=== PATIENT | female | born 1995 | race Caucasian/White ===

== ENCOUNTER → 2016-10-27 | Outpatient (REF) | payer OTHER ==
[~2016-10-27] MED LIST: ACET50TA PO; IBUP-1114 PO; IRON65TA PO; PRENTAB9 PO
[2016-10-27 13:49] LABS: CONTROL LINE UCG INT CTR LINE PRESENT
== END ==
LOC: M LAB REF 13:01
PROVIDERS: ATTEND Physician Assistant Medical
DX: Z32.02 Encounter for pregnancy test, result negative (principal)

== ENCOUNTER → 2016-12-11 | Outpatient (REF) | payer OTHER | LOC: M LAB REF 21:15 | PROVIDERS: ATTEND Physician Assistant Medical | DX: R30.0 Dysuria (principal) ==

== ENCOUNTER 2017-01-29 21:24 | Emergency (ER) | payer OTHER ==
[~2017-01-29] VITALS: Ht 167.6 cm; Wt 78.6 kg
[2017-01-29 21:24] VITALS: BP 162/89
== END 2017-01-29 22:24 | disposition left against medical advice (07) ==
LOC: M ED 22:15
DX: R10.9 Unspecified abdominal pain (principal); Z53.29 Procedure and treatment not carried out because of patient's decision for other reasons

== ENCOUNTER → 2017-01-29 | Outpatient (REF) | payer OTHER | LOC: M LAB REF 12:00 | PROVIDERS: ATTEND Physician Assistant Medical | DX: N39.0 Urinary tract infection, site not specified (principal) ==

== ENCOUNTER → 2017-10-06 | Outpatient (REF) | payer OTHER ==
[2017-10-06 16:04] LABS: APPEARANCE, URINE CLOUDY (CLEAR); BACTERIA, URINE AUTO 1+ (NEGATIVE); BILIRUBIN, URINE AUTO NEGATIVE (NEGATIVE); BLOOD, URINE BLOOD NEGATIVE (NEGATIVE); COLOR, URINE YELLOW (YELLOW); GLUCOSE, URINE (UA) AUTO NEGATIVE (NEGATIVE); KETONE, URINE AUTO NEGATIVE (NEGATIVE); LEUKOCYTE ESTERASE, URINE AUTO NEGATIVE (NEGATIVE); MUCUS, URINE LARGE (NEGATIVE); NITRITE, URINE AUTO NEGATIVE (NEGATIVE); PROTEIN, URINE AUTO NEGATIVE (NEGATIVE); RBC, URINE AUTO 1 /HPF (0-3); SPECIFIC GRAVITY URINE AUTO 1.023 (1.002-1.035); SQUAMOUS EPITHELIAL CELL UR AU 16 /HPF (0-6); UROBILINOGEN, URINE AUTO 0.2 mg/dL (0.0-2.0); WBC, URINE AUTO 2 /HPF (0-3)
== END ==
LOC: M LAB REF 15:49
DX: N39.0 Urinary tract infection, site not specified (principal)
CPT/HCPCS: 81001

== ENCOUNTER → 2018-02-02 | Outpatient (REF) | payer OTHER ==
[2018-02-02 14:24] LABS: APPEARANCE, URINE CLOUDY (CLEAR); BACTERIA, URINE AUTO NEGATIVE (NEGATIVE); BILIRUBIN, URINE AUTO NEGATIVE (NEGATIVE); BLOOD, URINE BLOOD NEGATIVE (NEGATIVE); COLOR, URINE YELLOW (YELLOW); GLUCOSE, URINE (UA) AUTO NEGATIVE (NEGATIVE); KETONE, URINE AUTO NEGATIVE (NEGATIVE); LEUKOCYTE ESTERASE, URINE AUTO TRACE (NEGATIVE); MUCUS, URINE LARGE (NEGATIVE); NITRITE, URINE AUTO NEGATIVE (NEGATIVE); PROTEIN, URINE AUTO NEGATIVE (NEGATIVE); RBC, URINE AUTO 1 /HPF (0-3); SPECIFIC GRAVITY URINE AUTO 1.026 (1.002-1.035); SQUAMOUS EPITHELIAL CELL UR AU 44 /HPF (0-6); WBC, URINE AUTO 15 /HPF (0-3)
== END ==
LOC: M LAB REF 12:43
DX: N39.0 Urinary tract infection, site not specified (principal)

== ENCOUNTER 2018-07-16 09:39 | Emergency (ER) | payer OTHER, SELFPAY ==
[~2018-07-16] VITALS: Ht 170.2 cm; Wt 84.1 kg
[~2018-07-16 09:39] MED LIST changes: -ACET50TA PO; +MAPA500T2 PO
[2018-07-16 09:40] VITALS: BP 139/89
[2018-07-16] MEDS ORDERED: LIDO1SOL7 PO (10:04)
[2018-07-16] MEDS ORDERED: LIDOCAINE VISCOUS 2% SOLN 15ML UDC SS ONE (10:15)
[2018-07-17] MEDS ORDERED: AMOX500C PO (15:44)
== END 2018-07-16 10:15 | disposition home or self-care (01) ==
LOC: M ED 09:39
DX: J02.8 Acute pharyngitis due to other specified organisms (principal); J45.909 Unspecified asthma, uncomplicated

== ENCOUNTER 2018-09-25 22:57 | Emergency (ER) | payer OTHER, SELFPAY ==
[~2018-09-25] VITALS: Ht 170.2 cm; Wt 81.8 kg
[~2018-09-25 22:57] MED LIST changes: +AMOX500C PO; +LIDO1SOL8 PO
[2018-09-26 02:30] LABS: BASO # 0.1 10^3/uL (0.0-0.2); BASO % 0.5 % (0.0-1.0); EOS # 0.1 10^3/uL (0.0-0.50); EOS % 0.8 % (0.0-3.0); HEMATOCRIT 34.3 % (36.0-47.0); HEMOGLOBIN 10.3 g/dl (12.0-15.5); LYMPH # 3.4 10^3/uL (1.5-6.5); LYMPH % 26.3 % (24.0-44.0); MEAN CORPUSCULAR HEMOGLOBIN 23.4 pg (27.0-33.0); MONO # 0.9 10^3/uL (0.0-0.8); MONO % 6.8 % (0.0-5.0); NEUTROPHILS # 8.5 10^3/uL (1.8-7.7); NEUTROPHILS % 65.2 % (36.0-66.0); PLATELET COUNT, AUTOMATED 323 10^3/uL (150-450)
[2018-09-26 02:51] LABS: HCG, SERUM QUALITATIVE NEGATIVE (NEGATIVE)
[2018-09-26 02:53] LABS: BLOOD UREA NITROGEN 12 MG/DL (7-18); CALCIUM LEVEL 8.2 MG/DL (8.5-10.1); CARBON DIOXIDE LEVEL 24 MEQ/L (21-32); CHLORIDE LEVEL 107 MEQ/L (98-107); CREATININE FOR GFR 0.66 MG/DL (0.55-1.30); GLOMERULAR FILTRATION RATE > 60.0 (>60); GLUCOSE, FASTING 90 MG/DL (70-100); POTASSIUM SERUM 3.6 MEQ/L (3.5-5.1); SODIUM LEVEL 140 MEQ/L (136-145)
[2018-09-26 05:46] VITALS: BP 139/77
--- NOTE | 2018-09-26 07:42 | REPVR ---
EXAM: US Pelvis Complete, Transabdominal and US Pelvis, Transvaginal EXAM DATE/TIME: 09/26/2018 5:41 AM CLINICAL HISTORY: 23 years old, female; Signs and symptoms; Menstruation abnormalities; Excessive menstruation; With irregular cycle; Additional info: Eval iud/bleeding TECHNIQUE: Imaging protocol: Real-time transabdominal and transvaginal pelvic ultrasound (complete) with image documentation. Transvaginal imaging was used for better evaluation of the endometrium and adnexa. COMPARISON: US BPP W/O NON STRESS TEST 03/31/2016 12:53 PM FINDINGS: Uterus/cervix: The uterus measures 9.4 x 4.4 x 6.5 cm. There is an IUD within the endometrial cavity. The endometrium appears thickened measuring 2 cm. There is a small amount of fluid or blood within the fundal portion of the endometrial cavity. Right adnexa: The right ovary measures 4.3 x 2.8 x 2.9 cm and is unremarkable in appearance containing small follicles. There is Doppler flow present within the right ovary. No adnexal masses. Left adnexa: The left ovary measures 3.6 x 2.9 x 2.2 cm and is unremarkable in appearance containing small follicles. There is Doppler flow present within the left ovary. No adnexal masses. Free fluid: No evidence of free fluid. Bladder: The urinary bladder is decompressed. IMPRESSION: 1. There is an IUD within the endometrial cavity. There is endometrial thickening which may represent endometrial hyperplasia and/or polyps. Other endometrial pathology cannot be excluded. Small amount of fluid or blood within the fundal portion of the endometrial cavity. 2. No adnexal masses or free fluid. 3. Unremarkable appearance of the ovaries. Electronically signed by: Benny Hamm On 09/26/2018 07:41:56 AM
--- NOTE | 2018-09-26 14:32 | ED PDOC ---
Post-Departure Follow-Up dr kahn faxed formal report of pelvic us for fu Nan Bull MD Sep 26, 2018 14:32
== END 2018-09-26 06:18 | disposition home or self-care (01) ==
LOC: M ED 22:57
DX: N92.0 Excessive and frequent menstruation with regular cycle (principal); D64.9 Anemia, unspecified; Z97.5 Presence of (intrauterine) contraceptive device; J45.909 Unspecified asthma, uncomplicated

== ENCOUNTER → 2018-10-22 | Outpatient (REF) | payer OTHER | LOC: M SFHCWAGY 11:31 | PROVIDERS: ATTEND Nurse Practitioner Women's Health | DX: Z12.4 Encounter for screening for malignant neoplasm of cervix (principal) ==

== ENCOUNTER 2018-11-11 11:35 | Emergency (ER) | payer OTHER ==
[~2018-11-11] VITALS: Ht 167.6 cm; Wt 84.5 kg
[2018-11-11 11:35] VITALS: BP 143/88
[2018-11-11] MEDS ORDERED: NAPR-837 PO (12:29)
[2018-11-11] MEDS ORDERED: REGL10TA6 PO (12:29)
== END 2018-11-11 12:38 | disposition home or self-care (01) ==
LOC: M ED 11:35
DX: R10.2 Pelvic and perineal pain (principal); J45.909 Unspecified asthma, uncomplicated

== ENCOUNTER 2019-01-30 11:48 | Emergency (ER) | payer OTHER ==
[~2019-01-30] VITALS: Ht 167.6 cm; Wt 85.5 kg
[~2019-01-30 11:48] MED LIST changes: +NAPR-837 PO; +REGL10TA6 PO
[2019-01-30 11:49] VITALS: BP 141/90
[2019-01-30 12:35] LABS: HEMATOCRIT 31.7 % (36.0-47.0); HEMOGLOBIN 8.9 g/dl (12.0-15.5); MEAN CORPUSCULAR HEMOGLOBIN 19.8 pg (27.0-33.0); MEAN CORPUSCULAR HGB CONC 28.1 g/dl (32.0-36.5); MEAN CORPUSCULAR VOLUME 70.6 fl (80.0-96.0); PLATELET COUNT, AUTOMATED 377 10^3/uL (150-450); RED BLOOD COUNT 4.49 10^6/uL (4.00-5.40); WHITE BLOOD COUNT 6.8 10^3/uL (4.0-10.0)
[2019-01-30] MEDS ORDERED: AUGM875T28 PO (12:56)
== END 2019-01-30 13:05 | disposition home or self-care (01) ==
LOC: M ED 11:48
DX: O23.41 Unspecified infection of urinary tract in pregnancy, first trimester (principal); O99.511 Diseases of the respiratory system complicating pregnancy, first trimester; Z3A.00 Weeks of gestation of pregnancy not specified

== ENCOUNTER → 2019-02-01 | Outpatient (CLI) | payer OTHER ==
[~2019-02-01] MED LIST changes: +AUGM875T28 PO
== END ==
LOC: M LAB 08:39
PROVIDERS: ATTEND Physician Assistant
DX: Z34.80 Encounter for supervision of other normal pregnancy, unspecified trimester (principal); Z3A.00 Weeks of gestation of pregnancy not specified

== ENCOUNTER 2019-02-15 17:53 | Emergency (ER) | payer OTHER ==
[~2019-02-15] VITALS: Ht 167.6 cm; Wt 85.2 kg
[2019-02-15 20:04] LABS: BASO # 0.1 10^3/uL (0.0-0.2); BASO % 0.8 % (0.0-1.0); EOS # 0.1 10^3/uL (0.0-0.5); EOS % 0.6 % (0.0-3.0); HEMATOCRIT 31.9 % (36.0-47.0); HEMOGLOBIN 9.2 g/dl (12.0-15.5); LYMPH # 1.6 10^3/uL (1.5-5.0); LYMPH % 17.3 % (24.0-44.0); MEAN CORPUSCULAR HEMOGLOBIN 20.9 pg (27.0-33.0); MEAN CORPUSCULAR HGB CONC 28.8 g/dl (32.0-36.5); MEAN CORPUSCULAR VOLUME 72.3 fl (80.0-96.0); MONO # 0.7 10^3/uL (0.0-0.8); MONO % 7.8 % (0.0-5.0); NEUTROPHILS # 6.8 10^3/uL (1.5-8.5); NEUTROPHILS % 73.2 % (36.0-66.0); PLATELET COUNT, AUTOMATED 279 10^3/uL (150-450); RED BLOOD COUNT 4.41 10^6/uL (4.00-5.40); WHITE BLOOD COUNT 9.3 10^3/uL (4.0-10.0)
[2019-02-15 20:18] LABS: BLOOD UREA NITROGEN 10 MG/DL (7-18); CALCIUM LEVEL 9.2 MG/DL (8.5-10.1); CARBON DIOXIDE LEVEL 25 MEQ/L (21-32); CHLORIDE LEVEL 106 MEQ/L (98-107); CREATININE FOR GFR 0.63 MG/DL (0.55-1.30); GLOMERULAR FILTRATION RATE > 60.0 (>60); GLUCOSE, FASTING 85 MG/DL (70-100); HCG, SERUM QUANTITATIVE 26927 MIU/ML; POTASSIUM SERUM 3.8 MEQ/L (3.5-5.1); SODIUM LEVEL 138 MEQ/L (136-145)
--- NOTE | 2019-02-15 22:54 | REPVR ---
EXAM: US First Trimester, Transabdominal EXAM DATE/TIME: 02/15/2019 10:18 PM CLINICAL HISTORY: 23 years old, female; Lmp or gestational age (in weeks): 6w 5d; Antepartum complications; Bleeding; ; Additional info: Donovan TECHNIQUE: Imaging protocol: Real-time transabdominal obstetrical ultrasound of the maternal pelvis and a first trimester , less than 14 weeks 0 days, with image documentation. COMPARISON: US OBS FOLL UP OR REPEAT EACH GES 03/16/2016 3:35 PM FINDINGS: GESTATION: Gestation: Single gestational sac in the uterine fundus. Single pole within the gestational sac demonstrates a crown-rump length of 7.3 mm. Yolk sac measures 4.4 mm. Heart rate: heart rate 132 beats per minute. Placenta: Unremarkable. No subchorionic bleed. Amniotic fluid: Amniotic and chorionic fluid are normal for gestational age. BIOMETRY: Estimated gestational age: Gestational age based on crown-rump length is 6 weeks 4 days in this patient with unknown LMP. MATERNAL: Uterus: Unremarkable. Cervix: Unremarkable. Right adnexa: Unremarkable. Left adnexa: Complex medical filled cyst in the left ovary measures 2 x 1.3 x 2.2 cm may represent a corpus luteum. Intraperitoneal: No intraperitoneal free fluid. IMPRESSION: Unremarkable early gestation at 6 weeks 4 days. Detailed structural survey can be performed between 19-20 weeks if clinically desired. Electronically signed by: Mariano Daley On 02/15/2019 22:53:42 PM
[2019-02-15] MEDS ORDERED: RHOGAM 300 MCG (1500 IU) INJ (J2790) IM ONE (23:30)
[2019-02-16 00:32] VITALS: BP 153/80
== END 2019-02-16 00:34 | disposition home or self-care (01) ==
LOC: M ED 17:53
DX: O20.0 Threatened abortion (principal); Z3A.01 Less than 8 weeks gestation of pregnancy
CPT/HCPCS: 36415; 76801; 80048; 81001; 84702; 85025; 86850; 86900; 86901; 93976; 96372; 99283; J2790

== ENCOUNTER → 2019-03-13 | Outpatient (REF) | payer OTHER ==
[2019-03-13 22:38] LABS: APPEARANCE, URINE TURBID (CLEAR); BACTERIA, URINE AUTO NEGATIVE (NEGATIVE); BILIRUBIN, URINE AUTO NEGATIVE (NEGATIVE); BLOOD, URINE BLOOD 1+ (NEGATIVE); CALCIUM OXALATE CRYSTALS MODERATE; COLOR, URINE AMBER (YELLOW); GLUCOSE, URINE (UA) AUTO NEGATIVE (NEGATIVE); KETONE, URINE AUTO NEGATIVE (NEGATIVE); LEUKOCYTE ESTERASE, URINE AUTO 2+ (NEGATIVE); MUCUS, URINE LARGE (NEGATIVE); NITRITE, URINE AUTO NEGATIVE (NEGATIVE); PROTEIN, URINE AUTO 1+ mg/dL (NEGATIVE); RBC, URINE AUTO 9 /HPF (0-3); SPECIFIC GRAVITY URINE AUTO 1.023 (1.002-1.035); SQUAMOUS EPITHELIAL CELL UR AU 105 /HPF (0-6); UROBILINOGEN, URINE AUTO 0.2 mg/dL (0.0-2.0); WBC, URINE AUTO 29 /HPF (0-3)
== END ==
LOC: M LAB REF 13:30
PROVIDERS: ATTEND Physician Assistant
DX: N39.0 Urinary tract infection, site not specified (principal)

== ENCOUNTER → 2019-03-26 | Outpatient (CLI) | payer OTHER ==
[2019-03-26 14:38] LABS: BASO % 0.4 % (0.0-1.0); EOS # 0.1 10^3/uL (0.0-0.5); EOS % 1.5 % (0.0-3.0); HEMATOCRIT 28.3 % (36.0-47.0); HEMOGLOBIN 8.4 g/dl (12.0-15.5); LYMPH # 1.3 10^3/uL (1.5-5.0); LYMPH % 16.2 % (24.0-44.0); MEAN CORPUSCULAR HEMOGLOBIN 21.9 pg (27.0-33.0); MEAN CORPUSCULAR HGB CONC 29.7 g/dl (32.0-36.5); MEAN CORPUSCULAR VOLUME 73.9 fl (80.0-96.0); MONO # 0.6 10^3/uL (0.0-0.8); MONO % 7.4 % (0.0-5.0); NEUTROPHILS % 74.1 % (36.0-66.0); PLATELET COUNT, AUTOMATED 235 10^3/uL (150-450); RED BLOOD COUNT 3.83 10^6/uL (4.00-5.40); WHITE BLOOD COUNT 8.1 10^3/uL (4.0-10.0)
[2019-03-26 15:00] LABS: ALT/SGPT 11 U/L (12-78); BILIRUBIN,TOTAL 0.4 MG/DL (0.2-1.0); CREATININE FOR GFR 0.55 MG/DL (0.55-1.30); GLOMERULAR FILTRATION RATE > 60.0 (>60); LDH LACTATE DEHYDROGENASE 150 U/L (84-246); URIC ACID 2.8 MG/DL (2.6-6.0)
[2019-03-26 15:07] LABS: TOTAL PROTEIN,RANDOM URINE < 5.0 MG/DL (0.0-12.0)
[2019-03-26 16:13] LABS: CHLAMYDIA DNA AMPLIFICATION NEGATIVE (NEGATIVE); GC DNA AMPLIFICATION NEGATIVE (NEGATIVE)
[2019-03-27 10:28] LABS: RUBELLA IgG QUALITATIVE SUSCEPTIBLE (IMMUNE)
[2019-03-27 10:57] LABS: HEPATITIS C VIRUS ABY INDEX 0.1 INDEX (<0.8); HIV 1&2 SCREEN CENTAUR NEGATIVE (NEGATIVE)
== END ==
LOC: M LAB 13:21
PROVIDERS: ATTEND Advanced Practice Midwife
DX: Z34.81 Encounter for supervision of other normal pregnancy, first trimester (principal); Z3A.00 Weeks of gestation of pregnancy not specified

== ENCOUNTER → 2019-05-06 | Outpatient (CLI) | payer OTHER ==
--- NOTE | 2019-05-06 10:34 | REP ---
Clinical: Anatomical evaluation. Comparison: 02/15/2019 . Findings: Examination demonstrates a single live intrauterine in breech presentation. motion is identified by technologist. Placenta is noted posterior fundal and grade zero without evidence for placenta previa or abruption. Amniotic fluid volume is normal. Cervix measures 3.8 cm in length and appears closed. No evidence for nuchal cord. Gestational age by LMP 18 weeks 2 days with RYAN 10/05/2019 . Gestational age by current measurements 18 weeks 5 days with RYAN 10/02/2019 . FHR equals 155 beats per minute. BPD 4.1 cm 18 weeks 4 days HC 15.8 cm 18 weeks 5 days AC 13.4 cm 18 weeks 6 days FL 2.8 cm 18 weeks 4 days HL 2.8 cm 19 weeks 0 days HC/AC ratio 1.18 Estimated weight 255 grams ( 64 percentile). Anatomical assessment demonstrates normal structures including cranium, choroid plexus, cavum, cerebellum/posterior fossa, facial features, lungs, four-chamber heart/ventricular outflow tracts, diaphragm, stomach, cord insertion/three-vessel cord, kidneys/bladder, spine, and extremities. Impression: Single live intrauterine in breech presentation demonstrating appropriate interval growth. Anatomical assessment is complete and normal. No gross abnormalities are identified. Electronically Signed by Benny Hollis MD 05/06/2019 10:26 A
== END ==
LOC: M RAD 09:22
PROVIDERS: ATTEND Advanced Practice Midwife
DX: Z34.82 Encounter for supervision of other normal pregnancy, second trimester (principal); Z3A.18 18 weeks gestation of pregnancy

== ENCOUNTER → 2019-07-31 | Outpatient (REF) | payer OTHER ==
[~2019-07-31] MED LIST changes: -LIDO1SOL8 PO; +LIDO2SOL17 PO
[2019-07-31 13:35] LABS: INFLUENZA A AMPLIFICATION NEGATIVE (NEGATIVE); INFLUENZA B AMPLIFICATION NEGATIVE (NEGATIVE)
== END ==
LOC: M LAB REF 12:23
PROVIDERS: ATTEND Physician Assistant
DX: J11.1 Influenza due to unidentified influenza virus with other respiratory manifestations (principal)

== ENCOUNTER → 2019-08-07 | Outpatient (CLI) | payer OTHER ==
[2019-08-07 12:38] LABS: HEMATOCRIT 29.2 % (36.0-47.0); HEMOGLOBIN 8.6 g/dl (12.0-15.5); MEAN CORPUSCULAR HEMOGLOBIN 23.6 pg (27.0-33.0); MEAN CORPUSCULAR HGB CONC 29.5 g/dl (32.0-36.5); PLATELET COUNT, AUTOMATED 255 10^3/uL (150-450); RED BLOOD COUNT 3.65 10^6/uL (4.00-5.40); WHITE BLOOD COUNT 9.9 10^3/uL (4.0-10.0)
== END ==
LOC: M LAB 10:18
PROVIDERS: ATTEND Obstetrics & Gynecology
DX: Z34.92 Encounter for supervision of normal pregnancy, unspecified, second trimester (principal); Z3A.00 Weeks of gestation of pregnancy not specified

== ENCOUNTER → 2019-08-08 | Outpatient (REF) | payer OTHER | LOC: M PLALAB 09:49 | PROVIDERS: ATTEND Obstetrics & Gynecology | DX: Z34.92 Encounter for supervision of normal pregnancy, unspecified, second trimester (principal) ==

== ENCOUNTER → 2019-08-21 | Outpatient (CLI) | payer MEDICAID, OTHER, SELFPAY | LOC: M LAB 07:55 | PROVIDERS: ATTEND Obstetrics & Gynecology | DX: Z34.92 Encounter for supervision of normal pregnancy, unspecified, second trimester (principal) ==

== ENCOUNTER → 2019-09-10 | Outpatient (REF) | payer OTHER ==
[~2019-09-10] MED LIST changes: +DOCU100C16 PO; +IBUP80TA PO; +IRON27TA2 PO; +LABE10TAB PO; +PERCOCET PO
== END ==
LOC: M SFHCWAGY 13:40
PROVIDERS: ATTEND Nurse Practitioner Women's Health
DX: R30.0 Dysuria (principal); R39.15 Urgency of urination

== ENCOUNTER → 2019-09-11 | Outpatient (REF) | payer OTHER, SELFPAY | LOC: M SFHCWAGY 16:56 | PROVIDERS: ATTEND Nurse Practitioner Women's Health | DX: Z36.85 Encounter for antenatal screening for Streptococcus B (principal); Z3A.36 36 weeks gestation of pregnancy; R30.0 Dysuria; R39.15 Urgency of urination ==

== ENCOUNTER 2019-09-17 13:56 | Inpatient (IN) | payer OTHER ==
[~2019-09-17] VITALS: Ht 170.2 cm; Wt 93.3 kg
[~2019-09-17 13:56] MED LIST changes: -DOCU100C16 PO; -IBUP80TA PO; -LABE10TAB PO; -PERCOCET PO
[2019-09-17 17:06] LABS: HEMATOCRIT 34.4 % (36.0-47.0); HEMOGLOBIN 10.7 g/dl (12.0-15.5); MEAN CORPUSCULAR HEMOGLOBIN 26.9 pg (27.0-33.0); MEAN CORPUSCULAR HGB CONC 31.1 g/dl (32.0-36.5); MEAN CORPUSCULAR VOLUME 86.4 fl (80.0-96.0); PLATELET COUNT, AUTOMATED 232 10^3/uL (150-450); RED BLOOD COUNT 3.98 10^6/uL (4.00-5.40); WHITE BLOOD COUNT 11.3 10^3/uL (4.0-10.0)
[2019-09-17 17:30] LABS: ALT/SGPT 11 U/L (12-78); BILIRUBIN,TOTAL 0.4 MG/DL (0.2-1.0); CREATININE FOR GFR 0.56 MG/DL (0.55-1.30); GLOMERULAR FILTRATION RATE > 60.0 (>60); LDH LACTATE DEHYDROGENASE 126 U/L (84-246)
[2019-09-17] MEDS: miSOPROStol 50 MCG 1/2 TAB (S0191) PO SCH ×2 (17:57→21:59)
--- NOTE | 2019-09-17 19:53 | HPEPDOC ---
Obstetrical History & Physical General Date of Admission Sep 17, 2019 at 13:56 History of Present Illness 24-year-old 3, para 1 presents at 37 weeks 2 days estimated gestational age by last which appeared confirmed by first trimester ultrasound for induction labor secondary to gestational hypertension Chief Complaint: Gestational Hypertension, Induction of labor Information Provided By: Patient Age: 24 : 3 Term: 1 Livin Care Care: Good Care Dating Final EDC: Oct 06, 2019 Final EDC by: LMP, 1st trimester (US) LMP: Dec 30, 2018 Past Medical History Past Obstetrical History : Past Obstetrical History: Multigravida Type of Delivery: Spontaneous Vaginal Del. 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 History: Abnormal Pap Past Medical History Medical History Asthma Surgical History: Other (eye surgery) Family History Significant Family History: No pertinent family hx, Diabetes, Hypertension Social History Marital Status: Psychosocial History: Anxiety * Smoker: non-smoker Alcohol: Denies Drugs: denies Allergies Coded Allergies: No Known Allergies (Unverified , 01/31/16) Medications Scheduled Ferrous Gluconate (Iron) 236 Mg Tablet, 1 TAB PO DAILY No.137/Iron/Folic Acd ( Vitamin Tablet) 1 Each Tablet, 1 TAB PO DAILY Physical Examination Physical Examination GENERAL: Alert and oriented times three. BREAST: . ABDOMEN: Gravid and non-tender to touch. FETUS: Is vertex (VTX) by sterile vaginal examination (SVE), fetus is vertex (VTX) by Brayden. HEART RATE: Regular rate and rhythm. LUNGS: Clear to auscultation (CTA). Laboratory Data 24H LABS Laboratory Tests 2 09/17/19 14:06: Serology Scanned Report Hepatitis B Testing 09/17/19 16:51: Nucleated Red Blood Cells % (auto) 0.0, Glomerular Filtration Rate > 60.0, Uric Acid 4.0, Total Bilirubin 0.4, Aspartate Amino Transf (AST/SGOT) 12, Alanine Aminotransferase (ALT/SGPT) 11L, Lactate Dehydrogenase 126 CBC/BMP Laboratory Tests 09/17/19 16:51 Pertinent Laboratoy Data Blood Type: A- RBC Antibody Screen: Positive (antibiotic d) HIV: Negative Hepatitis B: Negative Hepatitis C: Negative Rapid Plasma Reagin: Nonreactive Rubella: Nonreactive Chlamydia/Gonorrhea: Negative Group B Streptococcus: Negative Anatomy Ultrasound Placenta Location: Posterior Normal Anatomy: Yes Placenta Previa: No Vaginal Examination Dilation: Fingertip Station: -3 Cervical Consistency: Firm Cervical Position: Posterior Assessment Variability: Moderate Accelerations: Positive Decelerations: None Tocometer Contractions: No Assessment/Plan Assessment 24-year-old 3, para 1 at 37 weeks 2 days estimated gestational age by 13 week ultrasound for induction labor for gestational hypertension. Reassuring status Plan Admit and orient. Tube Roller and consent. Diet: Regular. Group B Streptococcus (GBS) negative. Labs and intravenous (IV) per unit protocol. Counseled on Pitocin and induction of labor (IOL). nticipate normal spontaneous delivery (). C-S as appropriate. Labor and Delivery Counseling Patient's been thoroughly counseled in regards to her diagnosis as well as induction of labor. Discussed medication as well as procedures performed labor and delivery. She is been verbally consented for emergency surgery, blood products anesthesia desires to proceed with admission. Will initiate her induction labor with 50 g of misoprostol NASRA RODARTE MD. Sep 17, 2019 19:53
[2019-09-17 21:44] VITALS: BP 134/85
[2019-09-17] MEDS ORDERED: PROMETHAZINE INJ 25 MG/ML VIAL (J2550) IV PRN (22:00)
[2019-09-17] MEDS ORDERED: BUTORPHANOL 2 MG/ML INJ (J0595) IV ONE (22:00)
[2019-09-18] VITALS (34 sets, daily range): BP systolic 116–171; BP diastolic 56–94
[2019-09-18] MEDS: miSOPROStol 50 MCG 1/2 TAB (S0191) PO SCH ×2 (01:58→06:02)
[2019-09-18] MEDS ORDERED: OXYTOCIN DRIP 30 UNITS in IV 1 EA IV SCH (10:30)
[2019-09-18] MEDS: LR 1,000 ML IV SCH ×2 (11:07→19:13)
[2019-09-18] MEDS ORDERED: BICITRA 30ML SOLN UDC As Ordered ONE (23:12)
[2019-09-18] MEDS ORDERED: ceFAZolin 2 GM/D5W 50 ML IV BAG (J0690 PER 500MG) As Ordered ONE (23:12)
[2019-09-18] MEDS ORDERED: ONDANSETRON 4MG/2ML VIAL (J2405) IV PRN (23:33)
[2019-09-18] MEDS ORDERED: diphenhydrAMINE 50MG/ML VIAL (J1200) IV PRN (23:33)
[2019-09-18] MEDS ORDERED: METOCLOPRAMIDE INJ 10MG/2ML VIAL (J2765) IV PRN (23:33)
[2019-09-18] MEDS ORDERED: NALOXONE INJ 0.4 MG/1 ML VIAL (J2310) IV PRN ×2 (23:33)
[2019-09-18] MEDS ORDERED: NALBUPHINE HCL 10 MG/ML AMP (J2300) IV PRN (23:33)
[2019-09-19] VITALS (13 sets, daily range): BP systolic 105–156; BP diastolic 52–90
[2019-09-19] MEDS ORDERED: MORPHINE PRES-FREE INJ 10 MG/10 ML VIAL (J2274) As Ordered ONE (00:04)
[2019-09-19] MEDS ORDERED: OXYTOCIN 30 UNITS IN 0.9% NaCl 500ML IV BAG (J2590) As Ordered ONE (00:04)
[2019-09-19] MEDS ORDERED: ONDANSETRON 4MG/2ML VIAL (J2405) As Ordered ONE (00:04)
[2019-09-19] MEDS ORDERED: dexameTHASONE 4 MG/ML 1ML VIAL (J1100 PER 1MG) As Ordered ONE (00:04)
[2019-09-19] MEDS ORDERED: KETOROLAC 60 MG/2 ML VIAL (J1885) As Ordered ONE (00:04)
[2019-09-19] MEDS ORDERED: PHENYLephrine HCL 500 MCG/5 ML (100MCG/ML) SYRINGE (J2370) As Ordered ONE ×2 (00:04→00:16)
[2019-09-19] MEDS ORDERED: OXYTOCIN INJ 10 UNITS/ML VIAL (J2590) As Ordered ONE (00:09)
[2019-09-19] MEDS ORDERED: OXYTOCIN DRIP 30 UNITS in IV 1 EA IV SCH (00:40)
[2019-09-19] MEDS ORDERED: ONDANSETRON 4 MG TAB (S0181) PO PRN (00:45)
[2019-09-19] MEDS ORDERED: RHOGAM 300 MCG (1500 IU) INJ (J2790) IM SCH (00:45)
[2019-09-19] MEDS ORDERED: MEASLES,MUMPS,RUBELLA VACCINE INJ (MMR-II) (90707) SC SCH (00:45)
[2019-09-19] MEDS ORDERED: PERCOCET 5MG/325MG TAB PO PRN ×2 (00:45)
[2019-09-19] MEDS ORDERED: PROMETHAZINE 25 MG TAB PO PRN (00:45)
[2019-09-19] MEDS ORDERED: ACETAMINOPHEN 500 MG TAB PO PRN (00:45)
[2019-09-19] MEDS ORDERED: IBUP80TA PO (00:52)
[2019-09-19] MEDS ORDERED: PERCOCET PO (00:52)
[2019-09-19] MEDS ORDERED: DOCU100C16 PO (00:52)
[2019-09-19] MEDS ORDERED: BICITRA 30ML SOLN UDC PO ONE (01:30)
[2019-09-19] MEDS ORDERED: ceFAZolin SOD 2 GM in IV 1 EA IV ONE (01:30)
[2019-09-19] MEDS: LR 1,000 ML IV SCH ×3 (03:00→16:40)
[2019-09-19] MEDS: KETOROLAC 30 MG/ML VIAL (J1885) IV SCH ×3 (06:01→18:00)
[2019-09-19] MEDS ORDERED: SIMETHICONE 80 MG CHEW TAB PO PRN (07:45)
[2019-09-19] MEDS: PRENATAL VITAMINS CHEWABLE TABLET PO SCH (07:50)
[2019-09-19] MEDS: DOCUSATE SODIUM 100 MG CAP PO SCH ×2 (07:50→21:06)
[2019-09-19] MEDS: IBUPROFEN 800 MG TAB PO SCH ×2 (14:00→21:06)
[2019-09-20 06:00] VITALS: BP 110/6
[2019-09-20] MEDS: IBUPROFEN 800 MG TAB PO SCH (06:20)
[2019-09-20 06:59] LABS: HEMATOCRIT 24.2 % (36.0-47.0); HEMOGLOBIN 7.4 g/dl (12.0-15.5); MEAN CORPUSCULAR HEMOGLOBIN 27.4 pg (27.0-33.0); MEAN CORPUSCULAR HGB CONC 30.6 g/dl (32.0-36.5); MEAN CORPUSCULAR VOLUME 89.6 fl (80.0-96.0); PLATELET COUNT, AUTOMATED 165 10^3/uL (150-450); WHITE BLOOD COUNT 10.7 10^3/uL (4.0-10.0)
[2019-09-20] MEDS: DOCUSATE SODIUM 100 MG CAP PO SCH (10:03)
[2019-09-20] MEDS: PRENATAL VITAMINS CHEWABLE TABLET PO SCH (10:03)
[2019-09-20] MEDS ORDERED: LABE10TAB PO (10:44)
== END 2019-09-20 12:45 | disposition home or self-care (01) | DRG 773 ==
LOC: M LDI 13:56 → M OBS 09-19 02:07
PROVIDERS: ADMIT Obstetrics & Gynecology; ATTEND Obstetrics & Gynecology
PROC: 3E0P7GC Introduction of Other Therapeutic Substance into Female Reproductive, Via Natural or Artificial Opening (ICD-10-PCS; 2019-09-17)
PROC: 10907ZC Drainage of Amniotic Fluid, Therapeutic from Products of Conception, Via Natural or Artificial Opening (ICD-10-PCS; 2019-09-18)
PROC: 10D00Z1 Extraction of Products of Conception, Low, Open Approach (ICD-10-PCS; principal; 2019-09-19)
DX: O13.4 Gestational [pregnancy-induced] hypertension without significant proteinuria, complicating childbirth (principal); Z3A.37 37 weeks gestation of pregnancy; O32.1XX0 Maternal care for breech presentation, not applicable or unspecified; Z37.0 Single live birth

== ENCOUNTER → 2019-11-22 | Outpatient (REF) | payer OTHER ==
[~2019-11-22] MED LIST changes: +DOCU100C16 PO; +IBUP80TA PO; +LABE10TAB PO; +PERCOCET PO
[2019-11-22 17:04] LABS: APPEARANCE, URINE HAZY (CLEAR); BACTERIA, URINE AUTO NEGATIVE (NEGATIVE); BILIRUBIN, URINE AUTO NEGATIVE (NEGATIVE); BLOOD, URINE BLOOD 3+ (NEGATIVE); COLOR, URINE YELLOW (YELLOW); GLUCOSE, URINE (UA) AUTO NEGATIVE (NEGATIVE); KETONE, URINE AUTO NEGATIVE (NEGATIVE); LEUKOCYTE ESTERASE, URINE AUTO NEGATIVE (NEGATIVE); NITRITE, URINE AUTO NEGATIVE (NEGATIVE); PROTEIN, URINE AUTO NEGATIVE (NEGATIVE); RBC, URINE AUTO 122 /HPF (0-3); SPECIFIC GRAVITY URINE AUTO 1.009 (1.002-1.035); SQUAMOUS EPITHELIAL CELL UR AU 8 /HPF (0-6); UROBILINOGEN, URINE AUTO 0.2 mg/dL (0.0-2.0); WBC, URINE AUTO 5 /HPF (0-3)
[2019-11-22 22:02] LABS: CHLAMYDIA DNA AMPLIFICATION NEGATIVE (NEGATIVE); GC DNA AMPLIFICATION NEGATIVE (NEGATIVE)
== END ==
LOC: M LAB REF 16:32
PROVIDERS: ATTEND Physician Assistant
DX: N39.0 Urinary tract infection, site not specified (principal); Z11.3 Encounter for screening for infections with a predominantly sexual mode of transmission

== ENCOUNTER → 2019-12-08 | Outpatient (REF) | payer OTHER | LOC: M LAB REF 19:31 | PROVIDERS: ATTEND Physician Assistant Medical | DX: N89.8 Other specified noninflammatory disorders of vagina (principal) ==

== ENCOUNTER 2020-01-23 11:51 | Emergency (ER) | payer OTHER ==
[2020-03-01 10:40] LABS: CHLAMYDIA DNA AMPLIFICATION NEGATIVE (NEGATIVE); GC DNA AMPLIFICATION NEGATIVE (NEGATIVE)
[2020-03-09 01:02] LABS: HEMATOCRIT 34.1 % (36.0-47.0); HEMOGLOBIN 9.7 g/dl (12.0-15.5); MEAN CORPUSCULAR HEMOGLOBIN 21.2 pg (27.0-33.0); MEAN CORPUSCULAR HGB CONC 28.4 g/dl (32.0-36.5); MEAN CORPUSCULAR VOLUME 74.6 fl (80.0-96.0); PLATELET COUNT, AUTOMATED 335 10^3/uL (150-450); RED BLOOD COUNT 4.57 10^6/uL (4.00-5.40); WHITE BLOOD COUNT 6.5 10^3/uL (4.0-10.0)
[2020-03-09 01:12] LABS: APPEARANCE, URINE CLEAR (CLEAR); BACTERIA, URINE AUTO NEGATIVE (NEGATIVE); BILIRUBIN, URINE AUTO NEGATIVE (NEGATIVE); BLOOD, URINE BLOOD 1+ (NEGATIVE); COLOR, URINE STRAW (YELLOW); GLUCOSE, URINE (UA) AUTO NEGATIVE (NEGATIVE); KETONE, URINE AUTO NEGATIVE (NEGATIVE); LEUKOCYTE ESTERASE, URINE AUTO NEGATIVE (NEGATIVE); NITRITE, URINE AUTO NEGATIVE (NEGATIVE); PROTEIN, URINE AUTO NEGATIVE (NEGATIVE); RBC, URINE AUTO 0 /HPF (0-3); SPECIFIC GRAVITY URINE AUTO 1.008 (1.002-1.035); SQUAMOUS EPITHELIAL CELL UR AU 1 /HPF (0-6); UROBILINOGEN, URINE AUTO 0.2 mg/dL (0.0-2.0); WBC, URINE AUTO 0 /HPF (0-3)
== END 2020-01-23 16:50 | disposition home or self-care (01) ==
LOC: M ED 11:51
DX: Z32.01 Encounter for pregnancy test, result positive (principal); O20.9 Hemorrhage in early pregnancy, unspecified; O34.81 Maternal care for other abnormalities of pelvic organs, first trimester; N83.202 Unspecified ovarian cyst, left side; Z79.899 Other long term (current) drug therapy; Z3A.01 Less than 8 weeks gestation of pregnancy

== ENCOUNTER → 2020-01-24 | Outpatient (CLI) | payer OTHER | LOC: M LAB 14:24 | PROVIDERS: ATTEND Specialist | DX: Z32.00 Encounter for pregnancy test, result unknown (principal) ==

== ENCOUNTER → 2020-01-24 | Outpatient (REF) | payer OTHER ==
[2020-03-12 19:51] LABS: APPEARANCE, URINE MANUAL HAZY (CLEAR); BILIRUBIN, URINE MANUAL NEGATIVE (NEGATIVE); COLOR, URINE MANUAL DK YELLOW (YELLOW); GLUCOSE, URINE (UA) MANUAL NEGATIVE (NEGATIVE); KETONE, URINE MANUAL NEGATIVE (NEGATIVE); PROTEIN, URINE MANUAL NEGATIVE (NEGATIVE); SPECIFIC GRAVITY,URINE MANUAL 1.025 (1.002-1.035); URINE PREG TEST POSITIVE (NEGATIVE); UROBILINOGEN, URINE MANUAL NORMAL (NORMAL)
[2020-03-12 19:52] LABS: NITRITE, URINE MANUAL NEGATIVE (NEGATIVE)
[2020-03-12 19:53] LABS: BLOOD URINE MANUAL POSITIVE (NEGATIVE); LEUKOCYTE ESTERASE, URINE MAN NEGATIVE (NEGATIVE); SQUAMOUS EPITHELIAL CELL URINE LARGE AMOUNT /hpf (SMALL AMT)
[2020-03-12 19:54] LABS: BACTERIA, URINE MOD AMOUNT; HYALINE CAST, URINE NONE SEEN /lpf (0-1); MUCUS, URINE LARGE AMOUNT (NEGATIVE)
== END ==
LOC: M LAB REF 06:45
PROVIDERS: ATTEND Physician Assistant Medical
DX: N39.0 Urinary tract infection, site not specified (principal)

== ENCOUNTER → 2020-01-28 | Outpatient (REF) | payer OTHER | LOC: M SFHCWAGY 10:41 | PROVIDERS: ATTEND Obstetrics & Gynecology | DX: O20.0 Threatened abortion (principal) ==

== ENCOUNTER → 2020-01-30 | Outpatient (CLI) | payer OTHER | LOC: M PLALAB 13:00 | PROVIDERS: ATTEND Advanced Practice Midwife | DX: O20.0 Threatened abortion (principal); Z3A.00 Weeks of gestation of pregnancy not specified ==

== ENCOUNTER 2020-02-03 21:20 | Emergency (ER) | payer OTHER ==
[~2020-02-03] VITALS: Ht 170.2 cm; Wt 90.2 kg
[2020-02-04 01:04] LABS: BASO # 0.1 10^3/uL (0.0-0.2); BASO % 0.6 % (0.0-1.0); EOS # 0.1 10^3/uL (0.0-0.5); EOS % 0.7 % (0.0-3.0); HEMATOCRIT 33.8 % (36.0-47.0); LYMPH # 2.3 10^3/uL (1.5-5.0); MEAN CORPUSCULAR HGB CONC 29.6 g/dl (32.0-36.5); MEAN CORPUSCULAR VOLUME 74.4 fl (80.0-96.0); MONO # 0.6 10^3/uL (0.0-0.8); MONO % 6.8 % (0.0-5.0); NEUTROPHILS # 5.6 10^3/uL (1.5-8.5); NEUTROPHILS % 64.4 % (36.0-66.0); PLATELET COUNT, AUTOMATED 283 10^3/uL (150-450); RED BLOOD COUNT 4.54 10^6/uL (4.00-5.40); WHITE BLOOD COUNT 8.7 10^3/uL (4.0-10.0)
[2020-02-04 01:23] LABS: APPEARANCE, URINE HAZY (CLEAR); BACTERIA, URINE AUTO 1+ (NEGATIVE); BILIRUBIN, URINE AUTO NEGATIVE (NEGATIVE); BLOOD, URINE BLOOD 3+ (NEGATIVE); COLOR, URINE YELLOW (YELLOW); GLUCOSE, URINE (UA) AUTO NEGATIVE (NEGATIVE); KETONE, URINE AUTO NEGATIVE (NEGATIVE); LEUKOCYTE ESTERASE, URINE AUTO NEGATIVE (NEGATIVE); MUCUS, URINE SMALL (NEGATIVE); NITRITE, URINE AUTO NEGATIVE (NEGATIVE); PROTEIN, URINE AUTO NEGATIVE (NEGATIVE); RBC, URINE AUTO 2 /HPF (0-3); SPECIFIC GRAVITY URINE AUTO 1.014 (1.002-1.035); SQUAMOUS EPITHELIAL CELL UR AU 2 /HPF (0-6); UROBILINOGEN, URINE AUTO 0.2 mg/dL (0.0-2.0); WBC, URINE AUTO 5 /HPF (0-3)
[2020-02-04 01:48] LABS: ALT/SGPT 21 U/L (12-78); BILIRUBIN,DIRECT < 0.1 MG/DL (0.0-0.2); BILIRUBIN,TOTAL 0.4 MG/DL (0.2-1.0); BLOOD UREA NITROGEN 9 MG/DL (7-18); CALCIUM LEVEL 9.1 MG/DL (8.5-10.1); CARBON DIOXIDE LEVEL 27 MEQ/L (21-32); CHLORIDE LEVEL 105 MEQ/L (98-107); CREATININE FOR GFR 0.64 MG/DL (0.55-1.30); GLOMERULAR FILTRATION RATE > 60.0 (>60); GLUCOSE, FASTING 87 MG/DL (70-100); HCG, SERUM QUANTITATIVE 988 MIU/ML; LIPASE 73 U/L (73-393); POTASSIUM SERUM 3.6 MEQ/L (3.5-5.1); SODIUM LEVEL 138 MEQ/L (136-145); TOTAL PROTEIN 7.9 GM/DL (6.4-8.2)
[2020-02-04] MEDS ORDERED: RHOGAM 300 MCG (1500 IU) INJ (J2790) IM ONE (03:00)
[2020-02-04 03:38] LABS: CHLAMYDIA DNA AMPLIFICATION NEGATIVE (NEGATIVE); GC DNA AMPLIFICATION NEGATIVE (NEGATIVE)
--- NOTE | 2020-02-04 03:41 | REPVR ---
PROCEDURE INFORMATION: Exam: US First Trimester, Transabdominal Exam date and time: 02/04/2020 3:21 AM Age: 24 years old Clinical indication: Lmp or gestational age (in weeks): 12/23/19; Antepartum complications; Bleeding; ; Additional info: Vag bleed eval for iup TECHNIQUE: Imaging protocol: Real-time transabdominal obstetrical ultrasound of the maternal pelvis and a first trimester , less than 14 weeks 0 days, with image documentation. COMPARISON: US OBS SINGEL GEST 2019-05-06 09:37 FINDINGS: Gestation: Small intrauterine gestational sac. New sac is visible. Embryonic/ heart rate: No detectable heart rate. Placenta: Unremarkable. No subchorionic bleed. Amniotic fluid: Amniotic fluid is normal for gestational age. BIOMETRY: Gestational age (AUA): Gestational age measures 5 weeks and 2 days. Estimated due date (AUA): Estimated due date 10/04/2020. MATERNAL: Uterus: Unremarkable. Cervix: Unremarkable. Right adnexa: Unremarkable right ovary. Left adnexa: Unremarkable left ovary. Intraperitoneal space: No intraperitoneal free fluid. IMPRESSION: Early intrauterine gestation measuring 5 weeks and 2 days with due date 10/04/2020. No cardiac activity at present, question too early. Electronically signed by: Yoan Shi On 02/04/2020 03:41:38 AM
[2020-02-04 04:09] VITALS: BP 146/86
== END 2020-02-04 04:29 | disposition home or self-care (01) ==
LOC: M ED 21:20
DX: O20.0 Threatened abortion (principal); Z3A.01 Less than 8 weeks gestation of pregnancy
CPT/HCPCS: 36415; 76801; 76817; 80048; 80076; 81001; 83690; 84702; 85025; 86850; 86900; 86901; 87086; 87210; 87491; 87591; 93976; 96372; 99283; J2790

== ENCOUNTER → 2020-02-14 | Outpatient (CLI) | payer OTHER | LOC: M PLALAB 11:51 | PROVIDERS: ATTEND Specialist | DX: O20.0 Threatened abortion (principal); Z3A.00 Weeks of gestation of pregnancy not specified ==

== ENCOUNTER 2020-04-19 23:53 | Emergency (ER) | payer OTHER ==
[~2020-04-19] VITALS: Ht 170.2 cm; Wt 90.9 kg
[~2020-04-19 23:53] MED LIST changes: +LABE100T4 PO; -LABE10TAB PO
[2020-04-20 00:38] LABS: BASO % 0.4 % (0.0-1.0); EOS % 0.4 % (0.0-3.0); HEMATOCRIT 32.7 % (36.0-47.0); HEMOGLOBIN 9.8 g/dl (12.0-15.5); LYMPH # 2.3 10^3/uL (1.5-5.0); LYMPH % 20.2 % (24.0-44.0); MEAN CORPUSCULAR HEMOGLOBIN 22.3 pg (27.0-33.0); MEAN CORPUSCULAR VOLUME 74.5 fl (80.0-96.0); MONO # 0.6 10^3/uL (0.0-0.8); NEUTROPHILS # 8.3 10^3/uL (1.5-8.5); NEUTROPHILS % 73.8 % (36.0-66.0); PLATELET COUNT, AUTOMATED 268 10^3/uL (150-450); RED BLOOD COUNT 4.39 10^6/uL (4.00-5.40); WHITE BLOOD COUNT 11.2 10^3/uL (4.0-10.0)
--- NOTE | 2020-04-20 01:40 | REPVR ---
PROCEDURE INFORMATION: Exam: US First Trimester, Transabdominal Exam date and time: 04/20/2020 12:56 AM Age: 25 years old Clinical indication: Lmp or gestational age (in weeks): 10 wk 2 day; Vag spotting; ; Additional info: Vag bleeding, nl US 3 days ago, 10w3d TECHNIQUE: Imaging protocol: Real-time transabdominal obstetrical ultrasound of the maternal pelvis and a first trimester , less than 14 weeks 0 days, with image documentation. COMPARISON: US OB 02/04/2020 3:11 AM FINDINGS: Last menstrual period: 02/08/2020 Gestation: There is a single live intrauterine gestation. There is a 6 mm in diameter yolk sac. Embryonic/ heart rate: 169 bpm Placenta: Unremarkable. No subchorionic bleed. Amniotic fluid: Amniotic fluid is normal for gestational age. BIOMETRY: Gestational age (AUA): 10 weeks 2 days Gestational age by LMP: 10 weeks 2 days Estimated due date (AUA): 11/14/2020 Estimated due date by LMP: 11/14/2020 [place]-Rump length: 3.5 cm (50th percentile for gestational age of 10 weeks 2 days) MATERNAL: Uterus: Unremarkable. Cervix: Unremarkable. Right adnexa: There is a 2.5 cm x 1.8 cm x 2.2 cm hypoechoic cyst in the right ovary, which likely represents a corpus luteal cyst. The right ovary measures 4.7 cm x 2.1 cm x 3.1 cm. The arterial and venous color Doppler flow and spectral waveforms within the right ovary are within normal limits, without evidence for right ovarian torsion. Left adnexa: The left ovary measures 3 cm x 1.5 cm by 1.9 cm and is normal in appearance. The arterial and venous color Doppler flow and spectral waveforms within the left ovary are within normal limits, without evidence for left ovarian torsion. Intraperitoneal space: No intraperitoneal free fluid. IMPRESSION: 1. Single live intrauterine with a gestational age by ultrasound of 10 weeks 2 days and estimated due date based on today's ultrasound on 11/14/2020. A second trimester obstetrical ultrasound is suggested at 19-20 weeks gestation for a detailed anatomical survey. 2. No subchorionic hemorrhage. 3. 2.5 cm x 1.8 cm x 2.2 cm hypoechoic cyst in the right ovary, which likely represents a corpus luteal cyst. Electronically signed by: Crispin Rollins On 04/20/2020 01:40:17 AM
[2020-04-20 02:14] LABS: APPEARANCE, URINE CLOUDY (CLEAR); BACTERIA, URINE AUTO NEGATIVE (NEGATIVE); BILIRUBIN, URINE AUTO NEGATIVE (NEGATIVE); BLOOD, URINE BLOOD 3+ (NEGATIVE); COLOR, URINE AMBER (YELLOW); GLUCOSE, URINE (UA) AUTO NEGATIVE (NEGATIVE); KETONE, URINE AUTO 2+ mg/dL (NEGATIVE); LEUKOCYTE ESTERASE, URINE AUTO NEGATIVE (NEGATIVE); MUCUS, URINE LARGE (NEGATIVE); NITRITE, URINE AUTO NEGATIVE (NEGATIVE); PROTEIN, URINE AUTO 2+ mg/dL (NEGATIVE); RBC, URINE AUTO TNTC /HPF (0-3); SPECIFIC GRAVITY URINE AUTO 1.023 (1.002-1.035); SQUAMOUS EPITHELIAL CELL UR AU 10 /HPF (0-6); TRANSITIONAL EPITHELIAL AUTO <1 /HPF; UROBILINOGEN, URINE AUTO 0.2 mg/dL (0.0-2.0); WBC, URINE AUTO 3 /HPF (0-3)
[2020-04-20] MEDS ORDERED: RHOGAM 300 MCG (1500 IU) INJ (J2790) IM ONE (02:30)
[2020-04-20 03:25] VITALS: BP 118/62
== END 2020-04-20 03:28 | disposition home or self-care (01) ==
LOC: M ED 23:53
DX: O26.851 Spotting complicating pregnancy, first trimester (principal); O99.511 Diseases of the respiratory system complicating pregnancy, first trimester; J45.909 Unspecified asthma, uncomplicated; Z3A.10 10 weeks gestation of pregnancy; Z87.891 Personal history of nicotine dependence; Z98.890 Other specified postprocedural states
CPT/HCPCS: 36415; 76801; 81001; 84702; 85025; 86901; 87086; 96372; 99283; G0463; J2790

== ENCOUNTER → 2020-04-23 | Outpatient (REF) | payer OTHER ==
[~2020-04-23] MED LIST changes: -LABE100T4 PO; +LABE10TAB PO
[2020-04-23 17:38] LABS: HEMATOCRIT 33.1 % (36.0-47.0); HEMOGLOBIN 9.7 g/dl (12.0-15.5); MEAN CORPUSCULAR HEMOGLOBIN 22.4 pg (27.0-33.0); MEAN CORPUSCULAR HGB CONC 29.3 g/dl (32.0-36.5); MEAN CORPUSCULAR VOLUME 76.4 fl (80.0-96.0); PLATELET COUNT, AUTOMATED 252 10^3/uL (150-450); RED BLOOD COUNT 4.33 10^6/uL (4.00-5.40); WHITE BLOOD COUNT 7.7 10^3/uL (4.0-10.0)
[2020-04-23 18:57] LABS: HEPATITIS C VIRUS ABY INDEX 0.1 INDEX (<0.8); HIV 1&2 SCREEN CENTAUR NEGATIVE (NEGATIVE)
== END ==
LOC: M PLALAB 14:58
PROVIDERS: ATTEND Obstetrics & Gynecology
DX: O34.211 Maternal care for low transverse scar from previous cesarean delivery (principal)

== ENCOUNTER → 2020-05-15 | Outpatient (CLI) | payer OTHER ==
[~2020-05-15] MED LIST changes: +LABE100T4 PO; -LABE10TAB PO
== END ==
LOC: M PLALAB 12:56
PROVIDERS: ATTEND Obstetrics & Gynecology
DX: Z34.81 Encounter for supervision of other normal pregnancy, first trimester (principal); Z3A.00 Weeks of gestation of pregnancy not specified
CPT/HCPCS: 36415; G0463

== ENCOUNTER → 2020-06-17 | Outpatient (REF) | payer OTHER | LOC: M SFHCWAGY 13:05 | PROVIDERS: ATTEND Obstetrics & Gynecology | DX: O34.211 Maternal care for low transverse scar from previous cesarean delivery (principal); O99.012 Anemia complicating pregnancy, second trimester; Z3A.18 18 weeks gestation of pregnancy ==

== ENCOUNTER → 2020-06-17 | Outpatient (CLI) | payer OTHER ==
--- NOTE | 2020-06-17 10:45 | REP ---
INDICATION: ANATOMY COMPARISON: None. TECHNIQUE: Transabdominal obstetrical ultrasound with color Doppler evaluation. FINDINGS: Examination demonstrates a single live intrauterine in cephalic presentation. motion is identified by technologist. Placenta is noted posterior and grade 1 without evidence for placenta previa or abruption. Amniotic fluid volume is normal. Cervix measures 3.4 cm in length and appears closed.. Gestational age by LMP 18 weeks 4 days with RYAN 11/14/2020. Gestational age by current measurements 19 weeks 1 day with RYAN 11/10/2020. FHR equals 158 beats per minute. BPD: 4.3 cm 19 weeks 0 days HC: 16.3 cm 19 weeks 0 days AC: 14.2 cm 19 weeks 4 days FL: 3.0 cm 19 weeks 2 days HL: 2.8 cm 19 weeks 0 days HC/AC: 1.15 Estimated weight 290 grams (86thpercentile). Anatomical assessment demonstrates normal structures including cranium, choroid plexus, cavum, cerebellum/posterior fossa, facial features, lungs, four-chamber heart/ventricular outflow tracts, diaphragm, stomach, cord insertion/three-vessel cord, kidneys/bladder, spine, and extremities. IMPRESSION: Single live intrauterine in cephalic presentation demonstrating appropriate interval growth. Anatomical assessment is complete and normal. No gross abnormalities are identified. <Electronically signed by Benny Hollis > 06/17/20 [id number]
== END ==
LOC: M WHC 09:04
PROVIDERS: ATTEND Advanced Practice Midwife
DX: O34.211 Maternal care for low transverse scar from previous cesarean delivery (principal); Z3A.19 19 weeks gestation of pregnancy
CPT/HCPCS: 76811; 87088; G0463

== ENCOUNTER → 2020-06-17 | Outpatient (REF) | payer OTHER | LOC: M PLALAB 09:19 | PROVIDERS: ATTEND Obstetrics & Gynecology | DX: Z3A.18 18 weeks gestation of pregnancy (principal) ==

== ENCOUNTER → 2020-07-14 | Outpatient (REF) | payer OTHER | LOC: M PLALAB 16:48 | PROVIDERS: ATTEND Obstetrics & Gynecology | DX: Z3A.22 22 weeks gestation of pregnancy (principal) ==

== ENCOUNTER → 2020-07-15 | Outpatient (REF) | payer OTHER | LOC: M SFHCWAGY 17:28 | PROVIDERS: ATTEND Obstetrics & Gynecology | DX: Z3A.22 22 weeks gestation of pregnancy (principal) | CPT/HCPCS: 87086; G0463 ==

== ENCOUNTER → 2020-08-31 | Outpatient (REF) | payer OTHER ==
[2020-08-31 18:03] LABS: HEMATOCRIT 31.4 % (36.0-47.0); HEMOGLOBIN 9.6 g/dl (12.0-15.5); MEAN CORPUSCULAR HEMOGLOBIN 27.3 pg (27.0-33.0); MEAN CORPUSCULAR HGB CONC 30.6 g/dl (32.0-36.5); MEAN CORPUSCULAR VOLUME 89.2 fl (80.0-96.0); PLATELET COUNT, AUTOMATED 225 10^3/uL (150-450); RED BLOOD COUNT 3.52 10^6/uL (4.00-5.40); WHITE BLOOD COUNT 9.8 10^3/uL (4.0-10.0)
== END ==
LOC: M PLALAB 12:42
PROVIDERS: ATTEND Obstetrics & Gynecology
DX: Z34.92 Encounter for supervision of normal pregnancy, unspecified, second trimester (principal); Z3A.22 22 weeks gestation of pregnancy
CPT/HCPCS: 36415; 82950; 85027; 86850; 86900; 86901; 87086; G0463; J2790

== ENCOUNTER → 2020-10-20 | Outpatient (REF) | payer MEDICAID, OTHER ==
[~2020-10-20] MED LIST changes: +ACET-683 PO; +FERR325T3 PO; +holter monitor
== END ==
LOC: M SFHCWAGY 17:01
PROVIDERS: ATTEND Obstetrics & Gynecology
DX: O34.211 Maternal care for low transverse scar from previous cesarean delivery (principal)

== ENCOUNTER 2020-11-04 12:37 | Inpatient (IN) | payer MEDICAID, OTHER ==
[2020-11-04] VITALS (11 sets, daily range): BP systolic 120–135; BP diastolic 58–83
[~2020-11-04] VITALS: Ht 172.7 cm; Wt 99.8 kg
[~2020-11-04 12:37] MED LIST changes: -ACET-683 PO; -FERR325T3 PO; -holter monitor
[2020-11-04] MEDS ORDERED: FERR325T3 PO (17:13)
[2020-11-04] MEDS ORDERED: OXYTOCIN DRIP 30 UNITS in IV 1 EA IV PRN (18:15)
[2020-11-04] MEDS ORDERED: METHYLERGONOVINE MALEATE 0.2 MG/ML VIAL (J2210) IM PRN (18:15)
[2020-11-04] MEDS ORDERED: LIDOCAINE 1% MDV 20ML VIAL INFIL PRN (18:15)
[2020-11-04] MEDS ORDERED: OXYTOCIN INJ 10 UNITS/ML VIAL (J2590) IM PRN (18:15)
[2020-11-04 19:04] LABS: HEMATOCRIT 37.8 % (36.0-47.0); HEMOGLOBIN 12.1 g/dl (12.0-15.5); MEAN CORPUSCULAR HEMOGLOBIN 28.7 pg (27.0-33.0); MEAN CORPUSCULAR VOLUME 89.6 fl (80.0-96.0); PLATELET COUNT, AUTOMATED 210 10^3/uL (150-450); RED BLOOD COUNT 4.22 10^6/uL (4.00-5.40); WHITE BLOOD COUNT 11.8 10^3/uL (4.0-10.0)
[2020-11-04] MEDS ORDERED: OXYTOCIN 30 UNITS IN 0.9% NaCl 500ML IV BAG (J2590) As Ordered ONE (21:28)
--- NOTE | 2020-11-04 21:52 | HPE ---
HISTORY AND PHYSICAL DATE OF ADMISSION: 11/04/2020 SUBJECTIVE: Constance is a 25-year-old, 5, para 2-0-2-2. She presents to labor and delivery today with report of uncomfortable contractions that started last evening and have progressively gotten worse overnight and throughout the day today. She does have some scant bloody show, denies leakage of fluid, the fetus has been active. [facility] care [facility] in the first trimester. Her course complicated by anemia, a history of gestational hypertension, however she has been normotensive for this , a history of a prior section for breech presentation, and a desire for a trial of labor after section. She has had one prior vaginal delivery. Rubella equivocal. OBSTETRICAL HISTORY: 1. April 2016: 7 pound 5 ounce female, vaginal delivery following an induction of labor due to gestational hypertension at 38 weeks. 2. Miscarriage. 3. September 2019: 37 weeks, 8 pound 1 ounce male, section for breech presentation following gestational hypertension. OBSTRETRIC LABORATORY DATA: A negative, antibody screen negative, syphilis negative, gonorrhea and chlamydia negative, hepatitis B surface antigen negative, hepatitis C antibody nonreactive, HIV nonreactive, Rubella equivocal. Gestational diabetic screening normal at 126. Urine culture negative and GBS is negative. PAST MEDICAL HISTORY: Gestational hypertension, anxiety, and asthma. SURGERIES: Bilateral eye surgery as a child and a section. FAMILY HISTORY: Noncontributory. SOCIAL HISTORY: She is a former smoker. She denies alcohol and drug use. 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 She is single, however the father of the baby is at bedside and supportive. She does deny history of abuse; physical, sexual, and emotional. ALLERGIES: No known drug allergies. CURRENT MEDICATIONS: - vitamin OBJECTIVE: Blood pressure is 132/83. She is alert and oriented. She does appear somewhat uncomfortable during her contractions. heart rate is 135 with moderate variability, positive accelerations, positive early decelerations, contractions are every 2-4 minutes, palpate moderate. Her abdomen is gravid, cephalic presentation, estimated weight 8 pounds. Cephalic presentation confirmed with bedside ultrasound. Sterile vaginal exam: 5-6 cm, 90% effaced, -3 station, membranes are intact, bulging bag of water, scant show. ASSESSMENT: Intrauterine at 38-4/7 weeks. heart rate category 1. Labor. Trial of labor after . PLAN: Per consult with Dr. Colmenares, admit patient to labor and delivery. Routine laboratories. Out of bed ad [facility]. Clear liquid diet at this time. Patient may consider an epidural for her labor coping. Will consider assisted rupture of membranes to expedite her labor. She has been verbally consented for emergency surgery and blood products if they are necessary. I anticipate continued labor progress and a vaginal after .
[2020-11-04] MEDS ORDERED: OXYTOCIN DRIP 30 UNITS in IV 1 EA IV SCH (22:15)
[2020-11-04] MEDS ORDERED: LR 1,000 ML IV SCH (22:15)
[2020-11-04] MEDS ORDERED: MEASLES,MUMPS,RUBELLA VACCINE INJ (MMR-II) (90707) SC SCH (23:45)
[2020-11-04] MEDS ORDERED: RHOGAM 300 MCG (1500 IU) INJ (J2790) IM SCH (23:45)
[2020-11-04] MEDS ORDERED: IBUPROFEN 600MG TAB PO PRN (23:45)
[2020-11-04] MEDS ORDERED: METHYLERGONOVINE MALEATE 0.2 MG TAB PO PRN (23:45)
[2020-11-04] MEDS ORDERED: DOCUSATE SODIUM 100MG CAPSULE PO PRN (23:45)
[2020-11-04] MEDS ORDERED: DIBUCAINE 1% OINTMENT 30GM TOP PRN (23:45)
[2020-11-04] MEDS ORDERED: ACETAMINOPHEN TAB 650MG DOSE (2X325MG) PO PRN (23:45)
[2020-11-04] MEDS: IBUPROFEN 800 MG TAB PO PRN (23:54)
[2020-11-04] MEDS: ACETAMINOPHEN 500 MG TAB PO PRN (23:54)
[2020-11-05] VITALS: BP 120/63
[2020-11-05 03:30] VITALS: BP 125/72
[2020-11-05 06:09] VITALS: BP 129/78
[2020-11-05] MEDS: ACETAMINOPHEN 500 MG TAB PO PRN (07:19)
[2020-11-05] MEDS: PRENATAL VITAMINS CHEWABLE TABLET PO SCH (07:19)
--- NOTE | 2020-11-05 07:43 | DN ---
DELIVERY NOTE DATE OF DELIVERY: 11/04/2020 TIME OF : 2253 GENDER: Male APGARS: 8 and 9 LACERATIONS: ANESTHESIA: ESTIMATED BLOOD LOSS: 600 ML. COUNTS: Correct and verified. DESCRIPTION OF DELIVERY: Constance is a 25-year-old 5, para 3-0-2-3 now, who was admitted to labor and delivery in active labor. She coped with her labor physiologically. She reached full dilation at 2253. She pushed to a vaginal after section at 2253 in occiput anterior (OA) position with restitution to left occiput transverse (LOT) position. There was no cord. The shoulders delivered with gentle downward traction and the corpus immediately followed. The was placed on the maternal abdomen crying and active. Mouth and nares were bulb suctioned. The cord was clamped x2 once pulsations ceased and cut by the father of the baby under my direction. A cord blood was obtained. Spontaneous expulsion of an intact placenta with three-vessel cord by Khoury mechanism was at 2301. Uterine hemostasis was achieved with IV Pitocin rapid infusion, Pitocin 10 units IM, and methergine 0.2 mg IM, as well as uterine fundal massage. Estimated blood loss 600 mL. The patient was also straight cathed for 100 mL of dark yellow urine. The perineum and vagina were inspected and noted to have a vaginal abrasion with no need for repair with that was hemostatic. male weighed 8 pounds 12 ounces (3980 grams). Apgars 8 and 9. Mom is going to formula feed her son and the family has named him Sacha. At the close of delivery, lap counts and instrument counts were correct and verified. [facility]
[2020-11-05] MEDS: IBUPROFEN 800 MG TAB PO PRN (13:55)
[2020-11-05 18:00] VITALS: BP 118/61
[2020-11-06 05:47] VITALS: BP 103/57
[2020-11-06] MEDS ORDERED: IBUP80TA PO (05:56)
[2020-11-06] MEDS ORDERED: ACET-683 PO (05:56)
[2020-11-06] MEDS: PRENATAL VITAMINS CHEWABLE TABLET PO SCH (07:52)
[2020-11-06] MEDS: ACETAMINOPHEN 500 MG TAB PO PRN (09:25)
== END 2020-11-06 10:35 | disposition home or self-care (01) | DRG 560 ==
LOC: M LDO 12:37 → M LDI 18:09 → M OBS 11-05 03:32
PROVIDERS: ADMIT Advanced Practice Midwife; ATTEND Advanced Practice Midwife
PROC: 10E0XZZ Delivery of Products of Conception, External Approach (ICD-10-PCS; principal; 2020-11-04)
PROC: 10907ZC Drainage of Amniotic Fluid, Therapeutic from Products of Conception, Via Natural or Artificial Opening (ICD-10-PCS; 2020-11-04)
DX: O34.211 Maternal care for low transverse scar from previous cesarean delivery (principal); D64.9 Anemia, unspecified; O99.02 Anemia complicating childbirth; Z37.0 Single live birth; Z3A.38 38 weeks gestation of pregnancy

== ENCOUNTER 2020-11-11 09:03 | Emergency (ER) | payer MEDICAID ==
[~2020-11-11] VITALS: Ht 172.7 cm; Wt 92.5 kg
[~2020-11-11 09:03] MED LIST changes: +ACET-683 PO; +FERR325T3 PO
--- NOTE | 2020-11-11 09:49 | REP ---
INDICATION: CHEST PAIN COMPARISON: 03/25/2011 TECHNIQUE: Portable AP view of the chest FINDINGS: The mediastinum and cardiac silhouette are stable and within normal limits for portable technique. The lung healy are clear without acute consolidation, effusion, or pneumothorax. Skeletal structures are intact. IMPRESSION: No acute cardiopulmonary process appreciated. <Electronically signed by Benny Hollis > 11/11/20 [id number]
[2020-11-11 09:56] LABS: BASO % 0.5 % (0.0-1.0); EOS # 0.2 10^3/uL (0.0-0.5); EOS % 2.5 % (0.0-3.0); HEMOGLOBIN 10.6 g/dl (12.0-15.5); LYMPH # 1.8 10^3/uL (1.5-5.0); LYMPH % 22.7 % (24.0-44.0); MEAN CORPUSCULAR HGB CONC 32.1 g/dl (32.0-36.5); MEAN CORPUSCULAR VOLUME 90.4 fl (80.0-96.0); MONO # 0.6 10^3/uL (0.0-0.8); MONO % 8.3 % (2.0-8.0); NEUTROPHILS % 65.5 % (36.0-66.0); PLATELET COUNT, AUTOMATED 263 10^3/uL (150-450); RED BLOOD COUNT 3.65 10^6/uL (4.00-5.40); WHITE BLOOD COUNT 7.7 10^3/uL (4.0-10.0)
[2020-11-11 10:37] LABS: ALBUMIN 2.9 GM/DL (3.2-5.2); ALT/SGPT 27 U/L (12-78); BILIRUBIN,DIRECT 0.1 MG/DL (0.0-0.2); BILIRUBIN,TOTAL 0.4 MG/DL (0.2-1.0); BLOOD UREA NITROGEN 11 MG/DL (7-18); CALCIUM LEVEL 8.9 MG/DL (8.5-10.1); CARBON DIOXIDE LEVEL 28 MEQ/L (21-32); CHLORIDE LEVEL 106 MEQ/L (98-107); CREATININE FOR GFR 0.62 MG/DL (0.55-1.30); FREE T4 1.01 NG/DL (0.76-1.46); GLOMERULAR FILTRATION RATE > 60.0 (>60); GLUCOSE, FASTING 82 MG/DL (70-100); LIPASE 57 U/L (73-393); MAGNESIUM LEVEL 1.8 MG/DL (1.8-2.4); POTASSIUM SERUM 3.9 MEQ/L (3.5-5.1); SODIUM LEVEL 140 MEQ/L (136-145); TOTAL PROTEIN 6.7 GM/DL (6.4-8.2)
[2020-11-11 11:00] VITALS: BP 138/84
[2020-11-11] MEDS ORDERED: holter monitor (11:14)
--- NOTE | 2020-11-11 20:51 | ECGEPIP ---
[facility] - ED Test Date: 2020-11-11 Pat Name: MELVA BACH Department: Room: - Gender: Female [employer] Supervisor: JARRELL : 1995 Requested By: Heather Bartholomew Order Number: [id number] Reading MD: Heather Bartholomew Measurements Intervals [place] Rate: 93 P: 46 [place]: 162 QRS: 38 QRSD: 84 T: 4 QT: 374 QTc: 465 Interpretive Statements Normal sinus rhythm decreased rate 05/01/15 Electronically Signed on 11-11-2020 20:51:31 EDT by Heather Bartholomew
== END 2020-11-11 11:21 | disposition home or self-care (01) ==
LOC: M ED 09:03
DX: R00.2 Palpitations (principal); J45.909 Unspecified asthma, uncomplicated

== ENCOUNTER → 2021-07-02 | Outpatient (REF) | payer MEDICAID ==
[~2021-07-02] MED LIST changes: +holter monitor
[2021-07-02 17:40] LABS: APPEARANCE, URINE CLEAR (CLEAR); BACTERIA, URINE AUTO NEGATIVE (NEGATIVE); BILIRUBIN, URINE AUTO NEGATIVE (NEGATIVE); BLOOD, URINE BLOOD NEGATIVE (NEGATIVE); COLOR, URINE YELLOW (YELLOW); GLUCOSE, URINE (UA) AUTO NEGATIVE (NEGATIVE); KETONE, URINE AUTO NEGATIVE (NEGATIVE); LEUKOCYTE ESTERASE, URINE AUTO NEGATIVE (NEGATIVE); MUCUS, URINE SMALL (NEGATIVE); NITRITE, URINE AUTO NEGATIVE (NEGATIVE); PROTEIN, URINE AUTO NEGATIVE (NEGATIVE); RBC, URINE AUTO 0 /HPF (0-3); SPECIFIC GRAVITY URINE AUTO 1.015 (1.002-1.035); SQUAMOUS EPITHELIAL CELL UR AU 32 /HPF (0-6); UROBILINOGEN, URINE AUTO 0.2 mg/dL (0.0-2.0); WBC, URINE AUTO 0 /HPF (0-3)
== END ==
LOC: M LAB REF 16:58
PROVIDERS: ATTEND Physician Assistant
DX: N39.0 Urinary tract infection, site not specified (principal)

== ENCOUNTER → 2021-11-18 | Outpatient (REF) | payer MEDICAID ==
[2021-11-18 16:46] LABS: APPEARANCE, URINE HAZY (CLEAR); BACTERIA, URINE AUTO 1+ (NEGATIVE); BILIRUBIN, URINE AUTO NEGATIVE (NEGATIVE); BLOOD, URINE BLOOD NEGATIVE (NEGATIVE); COLOR, URINE YELLOW (YELLOW); GLUCOSE, URINE (UA) AUTO NEGATIVE (NEGATIVE); KETONE, URINE AUTO NEGATIVE (NEGATIVE); LEUKOCYTE ESTERASE, URINE AUTO NEGATIVE (NEGATIVE); MUCUS, URINE SMALL (NEGATIVE); NITRITE, URINE AUTO NEGATIVE (NEGATIVE); PROTEIN, URINE AUTO NEGATIVE (NEGATIVE); RBC, URINE AUTO 0 /HPF (0-3); SQUAMOUS EPITHELIAL CELL UR AU 25 /HPF (0-6); UROBILINOGEN, URINE AUTO 0.2 mg/dL (0.0-2.0); WBC, URINE AUTO 0 /HPF (0-3)
== END ==
LOC: M LAB REF 16:12
PROVIDERS: ATTEND Physician Assistant
DX: N39.0 Urinary tract infection, site not specified (principal)

== ENCOUNTER 2022-02-01 13:20 | Emergency (ER) | payer MEDICAID ==
[~2022-02-01] VITALS: Ht 170.2 cm; Wt 102.3 kg
[~2022-02-01 13:20] MED LIST changes: -LABE100T4 PO; +LABE100T6 PO
[2022-02-01 13:22] VITALS: BP 138/84
== END 2022-02-01 13:30 | disposition left against medical advice (07) ==
LOC: M ED 13:20
DX: Z53.21 Procedure and treatment not carried out due to patient leaving prior to being seen by health care provider (principal)

== ENCOUNTER 2022-04-22 10:44 | Emergency (ER) | payer MEDICAID ==
[~2022-04-22] VITALS: Ht 170.2 cm; Wt 104.0 kg
[2022-04-22] MEDS ORDERED: NIRM1TAB (10:59)
[2022-04-22] MEDS ORDERED: NS 1,000 ML IV ONE (13:20)
[2022-04-22] MEDS ORDERED: ISOVUE-370 76% 100ML VIAL As Ordered ONE (14:32)
[2022-04-22 14:49] LABS: BASO % 0.5 % (0.0-1.0); EOS # 0.1 10^3/uL (0.0-0.5); EOS % 0.8 % (0.0-3.0); HEMATOCRIT 36.1 % (36.0-47.0); LYMPH # 1.9 10^3/uL (1.5-5.0); MEAN CORPUSCULAR HEMOGLOBIN 24.2 pg (27.0-33.0); MEAN CORPUSCULAR HGB CONC 30.5 g/dl (32.0-36.5); MEAN CORPUSCULAR VOLUME 79.3 fl (80.0-96.0); MONO # 0.4 10^3/uL (0.0-0.8); MONO % 5.6 % (2.0-8.0); NEUTROPHILS # 4.2 10^3/uL (1.5-8.5); NEUTROPHILS % 63.8 % (36.0-66.0); PLATELET COUNT, AUTOMATED 270 10^3/uL (150-450); RED BLOOD COUNT 4.55 10^6/uL (4.00-5.40); WHITE BLOOD COUNT 6.6 10^3/uL (4.0-10.0)
[2022-04-22 18:05] VITALS: BP 133/80
== END 2022-04-22 18:08 | disposition home or self-care (01) ==
LOC: M ED 10:44
DX: O99.891 Other specified diseases and conditions complicating pregnancy (principal); J20.9 Acute bronchitis, unspecified; O99.519 Diseases of the respiratory system complicating pregnancy, unspecified trimester; Z86.16 Personal history of COVID-19; R04.2 Hemoptysis; J04.0 Acute laryngitis; Z3A.00 Weeks of gestation of pregnancy not specified

== ENCOUNTER → 2022-12-23 | Outpatient (REF) | payer MEDICAID ==
[~2022-12-23] MED LIST changes: +LIDO15SO PO; -LIDO2SOL17 PO; +NIRM1TAB
[2022-12-23 16:54] LABS: APPEARANCE, URINE HAZY (CLEAR); BACTERIA, URINE AUTO NEGATIVE (NEGATIVE); BILIRUBIN, URINE AUTO NEGATIVE (NEGATIVE); BLOOD, URINE BLOOD NEGATIVE (NEGATIVE); COLOR, URINE YELLOW (YELLOW); GLUCOSE, URINE (UA) AUTO NEGATIVE (NEGATIVE); KETONE, URINE AUTO NEGATIVE (NEGATIVE); LEUKOCYTE ESTERASE, URINE AUTO TRACE (NEGATIVE); MUCUS, URINE SMALL (NEGATIVE); NITRITE, URINE AUTO NEGATIVE (NEGATIVE); PROTEIN, URINE AUTO NEGATIVE (NEGATIVE); RBC, URINE AUTO 1 /HPF (0-3); SPECIFIC GRAVITY URINE AUTO 1.018 (1.002-1.035); SQUAMOUS EPITHELIAL CELL UR AU 6 /HPF (0-6); UROBILINOGEN, URINE AUTO 0.2 mg/dL (0.0-2.0); WBC, URINE AUTO 6 /HPF (0-3)
[2022-12-23 18:53] LABS: GC DNA AMPLIFICATION NEGATIVE (NEGATIVE)
== END ==
LOC: M LAB REF 16:18
PROVIDERS: ATTEND Physician Assistant
DX: N39.0 Urinary tract infection, site not specified (principal)

== ENCOUNTER → 2023-07-28 | Outpatient (REF) | payer MEDICAID ==
[2023-07-28 12:19] LABS: BASO % 0.6 % (0.0-1.0); EOS # 0.2 10^3/uL (0.0-0.5); EOS % 3.6 % (0.0-3.0); HEMATOCRIT 32.8 % (36.0-47.0); HEMOGLOBIN 9.5 g/dl (12.0-15.5); LYMPH % 30.9 % (24.0-44.0); MEAN CORPUSCULAR HEMOGLOBIN 21.5 pg (27.0-33.0); MEAN CORPUSCULAR VOLUME 74.2 fl (80.0-96.0); MONO # 0.5 10^3/uL (0.0-0.8); MONO % 7.7 % (2.0-8.0); NEUTROPHILS # 3.6 10^3/uL (1.5-8.5); NEUTROPHILS % 56.9 % (36.0-66.0); PLATELET COUNT, AUTOMATED 340 10^3/uL (150-450); RED BLOOD COUNT 4.42 10^6/uL (4.00-5.40); WHITE BLOOD COUNT 6.4 10^3/uL (4.0-10.0)
[2023-07-28 12:39] LABS: HEMOGLOBIN A1c 5.1 % (4.0-6.0)
[2023-07-28 12:45] LABS: ALBUMIN 3.5 G/DL (3.2-5.2); ALKALINE PHOSPHATASE 71 U/L (46-116); ALT/SGPT 19 U/L (7.0-40); AST/SGOT 16 U/L (<34); BILIRUBIN,TOTAL 0.6 MG/DL (0.3-1.2); BLOOD UREA NITROGEN 10 MG/DL (9-23); CALCIUM LEVEL 8.4 MG/DL (8.5-10.1); CARBON DIOXIDE LEVEL 27 MMOL/L (20-31); CHLORIDE LEVEL 109 MMOL/L (98-107); CHOLESTEROL LEVEL 119 MG/DL (<200); CHOLESTEROL RISK RATIO 3.99 (<5); CREATININE FOR GFR 0.65 MG/DL (0.55-1.30); GLOMERULAR FILTRATION RATE > 60.0 (>60); GLUCOSE, FASTING 88 MG/DL (60-100); HDL CHOLESTEROL 29.8 MG/DL (>40); LDL CHOLESTEROL 65.4 MG/DL (<100); MAGNESIUM LEVEL 1.8 MG/DL (1.8-2.4); NON-HDL-C 89.2 MG/DL; POTASSIUM SERUM 4.2 MMOL/L (3.5-5.1); SODIUM LEVEL 141 MMOL/L (136-145); TOTAL PROTEIN 6.9 G/DL (5.7-8.2); TRIGLYCERIDES LEVEL 119 MG/DL (<150)
[2023-07-28 12:46] LABS: THYROID STIMULATING HORMONE 3.687 uIU/ML (0.55-4.78); TOTAL 25(OH) VITAMIN D 20.6 NG/ML (20.0-100.0)
== END ==
LOC: M LAB REF 11:30
PROVIDERS: ATTEND Nurse Practitioner Family
DX: Z13.228 Encounter for screening for other metabolic disorders (principal)